=== PATIENT | female | born 1985 | race Caucasian/White ===

== ENCOUNTER 2022-12-18 09:52 | Emergency (ER) | payer OTHER, SELFPAY ==
--- NOTE | ~2022-12-18 | CT_ITS ---
EXAMINATION: CT abdomen pelvis w con DATE: 12/18/2022 13:21 INDICATION: Epigastric abdominal pain. Nausea and dry heaving. Diarrhea. TECHNIQUE: Computed tomography (CT) of the abdomen and pelvis was performed with 100 CC Omnipaque 350 intravenous contrast. Automated exposure control and iterative reconstruction technique were employe d. Exam dose: 1353.04 mGy-cm total exam DLP. COMPARISON: 08/04/2015 CT abdomen pelvis FINDINGS: The lung bases are clear. Normal heart size. No pericardial or pleural effusion. There are radiopaque sutures at the proximal stomach. There is a small sliding hiatal hernia. There i s soft tissue thickening of the sulci was, possibly due to reflux esophagitis. There is cholelithiasis, with evidence of multiple stones. No gallbladder wall thickening or perichol ecystic fluid or fat stranding. No bile duct or pancreatic duct dilatation. No hepatic, pancreatic, splenic space-occupying mass lesion. No pancreatic calcification. Normal morphology of the adrenal glands. No renal mass lesion or urinary tract calculus or hydroureteronephrosis. The urinary bladder is unrem arkable. There is an IUD within the uterus. No adnexal mass lesion. Normal caliber of the abdominal aorta. No intraperitoneal or retroperitoneal or pelvic mass lesion or adenopathy or ascites. Normal appendix. No bowel obstruction, bowel wall thickening, pneumatosis or intraperitoneal free air is noted. Very small fat-containing umbilical hernia. There is an osteosclerotic lesion of the left pubic bone and smaller osteolytic or sclerotic lesion o f the left iliac wing; these are most likely bone islands. Osteosclerotic metastatic disease would be less likely. IMPRESSION: Small sliding hiatal hernia with distal esophageal circumferential soft tissue wall thic [place], possibly due to reflux esophagitis Postoperative change of the stomach Cholelithiasis IUD within uterus Normal appendix Reviewed, dictated and finalized at [facility]. Reviewed, dictated and finalized at [facility]. IMPRESSION: Small sliding hiatal hernia with distal esophageal circumferential soft tissue wall thickening, possibly due to reflux esophagitis Postoperative change of the stomach Cholelithiasis IUD within uterus Normal appendix
[2022-12-18 09:57] VITALS: BP 134/84; PULSE 80; RESP 18; TEMP 36.6; O2SAT 100
[2022-12-18 10:41] LABS: Basophils Percent Auto 0.4 % (0.2-1.2); Eosinophils Percent Auto 0.1 % (0-4.4); Hematocrit 39.8 % (37.0-47.0); Hemoglobin 12.5 g/dL (12.0-15.0); Immature Granulocyte Absolute 0.04 K/mm3 (0.00-0.031); Immature Granulocyte Percent A 0.4 % (0-0.5); Lymphocytes Absolute Auto 1.01 K/mm3 (0.9-3.2); Mean Corpuscular HGB Conc 31.4 g/dl (32-36); Mean Corpuscular Hemoglobin 26.9 pg (26-34); Mean Corpuscular Volume 85.6 fl (80-100); Mean Platelet Volume 11.2 fl (7.4-10.4); Monocytes Absolute Auto 0.3 K/mm3 (0.1-0.6); Monocytes Percent Auto 2.8 % (2.6-8.5); Neutrophils Absolute Auto 9.8 K/mm3 (1.3-6.7); Neutrophils Percent Auto 87.3 % (45.5-73.1); Platelet Count Result 313 k/mm3 (150-375); Red Blood Count 4.65 M/mm3 (4.2-5.4); White Blood Count 11.2 K/mm3 (4.5-10.0)
[2022-12-18 10:47] LABS: Appearance Urine Clear (Clear); Bacteria Urine None Seen /hpf; Bilirubin Urine Negative (Negative); Blood Urine Trace (Negative); Color Urine Yellow (Yellow); Glucose Urine UA 3+ mg/dL (Negative); Ketones Urine 1+ mg/dL (Negative); Leukocyte Esterase Ur Negative LEU/UL (Negative); Nitrate Urine Negative (Negative); Non Pathogenic Casts 0-2; Protein Urine 2+ mg/dL (Negative); RBC Urine 0-2 /hpf (0-2); Specific Grav Ur 1.031 (1.001-1.035); Squamous Epithelial Cell Urine Few /hpf (Few); Urobilinogen Urine 0.2 mg/dL (<2.0); WBC Urine 0-5 /hpf
[2022-12-18 10:48] LABS: Add Urine Microscopic? YES
[2022-12-18 10:49] LABS: Alanine Aminotransferase 19 U/L (6-35); Albumin Level 4.4 g/dL (3.5-5.1); Alkaline Phosphatase 89 U/L (38-126); Anion Gap 10 mmol/L (8-16); Aspartate Amino Transferase 20 U/L (14-36); Bilirubin,Total 0.4 mg/dL (0.2-1.3); Blood Urea Nitrogen 10 mg/dL (7-17); Calcium 9.2 mg/dL (8.4-10.2); Carbon Dioxide 23 mmol/L (22-30); Chloride 106 mmol/L (98-107); Estimated CRCL calculation 136 ml/min; Estimated Glomerular Filt Rate > 60; Glucose 122 mg/dL (65-110); Lipase 63 U/L (23-300); Potassium 3.9 mmol/L (3.4-5.0); Sodium 139 mmol/L (137-145)
[2022-12-18 11:22] VITALS: BP 147/88; PULSE 72
[2022-12-18 11:24] VITALS: BP 137/90; BP 137/98; PULSE 68; PULSE 75
--- NOTE | 2022-12-18 13:01 | ED.NAVMDI ---
HPI - Nausea/Vomiting/Diarrhea General Chief complaint: Nausea/Vomiting/Diarrhea Stated complaint: nausea/dry heaves Time Seen by Provider: 12/18/22 11:15 Source: patient Mode of arrival: ambulatory Limitations: no limitations History of Present Illness HPI Narrative: Patient is a 37-year-old female, with past medical history of gastric bypass surgery, who presents to the ED with report of nausea and dry heaving. Patient reports having persistent nausea since around midnight last night. She notes she had spicy [place] food for dinner last night. She states she is unable to throw anything up besides phlegm. She has had decreased appetite, decreased p.o. intake. She also reports having pain in her epigastric region, soft stools. Denies rectal bleeding, melena. Denies fevers. Denies urinary symptoms. Patient has history of gastric bypass surgery and reports history of dumping syndrome. Related Data Home Medications Medication Instructions Recorded Confirmed bupropion HCl 150 mg 24 hr tablet, 150 mg PO QAM 12/25/19 09/02/21 extended release (Wellbutrin XL) buspirone 5 mg tablet 10 mg PO TID 04/26/20 09/02/21 atomoxetine 60 mg capsule 60 mg PO DAILY 09/02/21 09/02/21 (Strattera) Allergies Allergy/AdvReac Type Severity Reaction Status Date / Time hydrochlorothiazide Allergy Unknown Unknown Verified 05/02/21 08:50 shellfish derived Allergy Hives Verified 05/02/21 09:26 Review of Systems Review of Systems: CONSTITUTIONAL: Denies fever, chills, or sweats. CARDIOVASCULAR: Denies chest pain. RESPIRATORY: Denies dyspnea. GASTROINTESTINAL: See HPI. GENITOURINARY: Denies dysuria or hematuria. SKIN: Denies rash or itching. MUSCULOSKELETAL: Denies back pain, joint pain, or myalgia. All systems reviewed & are unremarkable except as noted in HPI and below PMFSH Surgical History Surgical History History of gastric bypass Family History Family History Father Hypertension Family history of cardiovascular disease Family history of malignant neoplasm Mother Hypertension Grandparent Family history of malignant neoplasm Family history of pancreatic cancer Family history of lung cancer Family history of malignant neoplasm of breast Social History Social History Second hand tobacco smoke exposure: No Alcohol intake: current Substance use type: does not use Exam Narrative: GENERAL: Well appearing, obese with BMI of 37.7, non-toxic, in no acute distress. HEAD: Normocephalic, atraumatic. NECK: Supple. No adenopathy, no masses. RESPIRATORY: Airway patent, respirations nonlabored. Clear to auscultation bilaterally, no rales, rhonchi, wheezing. CARDIOVASCULAR: Regular rate and rhythm without murmurs, rubs, or gallops. Radial pulses 2+ and equal bilaterally. ABDOMINAL: Soft, tenderness in epigastric region, nondistended, no hepatosplenomegaly. Normoactive BS. MUSCULOSKELETAL: Moves all extremities. Strength/ROM intact without gross deformities. SKIN: Warm, dry, normal color. No rashes. NEURO: A&O X3. Speech clear. Cranial nerves II-XII grossly intact. Steady gait. No ataxic movements. PSYCHIATRIC: Appropriate mood and affect. Normal interaction. Course Vital Signs Vital signs: Vital Signs Temperature 97.8 F 12/18/22 09:57 Pulse Rate 80 12/18/22 09:57 Respiratory Rate 18 12/18/22 09:57 Blood Pressure 134/84 12/18/22 09:57 Pulse Oximetry 100 12/18/22 09:57 Oxygen Delivery Room Air 12/18/22 09:57 Temperature 97.8 F 12/18/22 09:57 Pulse Rate 68 12/18/22 11:24 Respiratory Rate 18 12/18/22 09:57 Blood Pressure 137/98 H 12/18/22 11:24 Pulse Oximetry 100 12/18/22 09:57 Oxygen Delivery Room Air 12/18/22 09:57 MDM - Nausea/Vomiting/Diarrhea MDM Narrative Medical decision making
[2022-12-18] MEDS: ONDANSETRON INJ 4 MG/2 ML VIAL IV PUSH (13:04)
[2022-12-18] MEDS: PANTOPRAZOLE SODIUM IV 40 MG VIAL IV PUSH (13:04)
[2022-12-18] MEDS: MORPHINE SULFATE (*CRX) 4 MG/ML INJ IV PUSH (13:05)
[2022-12-18] MEDS: SODIUM CHLORIDE 0.9% IV 1,000 ML 999 ML IV CONT ×2 (13:05→13:40)
[2022-12-18 15:30] VITALS: BP 117/71; PULSE 74; RESP 18; O2SAT 100
== END 2022-12-18 15:20 | disposition home or self-care (01) ==
PROVIDERS: General Practice; Emergency Provider Physician Assistant
DX: K20.90 Esophagitis, unspecified without bleeding (principal); R11.0 Nausea; K80.20 Calculus of gallbladder without cholecystitis without obstruction; Z98.84 Bariatric surgery status
CPT/HCPCS: 36415; 74177; 80053; 81001; 81025; 83690; 85025; 96361; 96374; 96375; 99284; C9113; J2270; J2405; J7030; Q9967

== ENCOUNTER 2023-04-12 06:58 | Emergency (ER) | payer OTHER, SELFPAY ==
[2023-04-12 07:01] VITALS: BP 151/92; PULSE 92; RESP 18; TEMP 36.9; O2SAT 99
[2023-04-12 07:38] LABS: Basophils Percent Auto 0.3 % (0.2-1.2); Eosinophils Percent Auto 0.2 % (0-4.4); Hematocrit 44.8 % (37.0-47.0); Hemoglobin 13.8 g/dL (12.0-15.0); Immature Granulocyte Absolute 0.06 K/mm3 (0.00-0.031); Immature Granulocyte Percent A 0.5 % (0-0.5); Lymphocytes Absolute Auto 0.82 K/mm3 (0.9-3.2); Lymphocytes Percent Auto 6.2 % (18.3-44.2); Mean Corpuscular HGB Conc 30.8 g/dl (32-36); Mean Corpuscular Hemoglobin 26.7 pg (26-34); Mean Corpuscular Volume 86.8 fl (80-100); Mean Platelet Volume 11.2 fl (7.4-10.4); Monocytes Absolute Auto 0.6 K/mm3 (0.1-0.6); Monocytes Percent Auto 4.8 % (2.6-8.5); Neutrophils Absolute Auto 11.6 K/mm3 (1.3-6.7); Platelet Count Result 321 k/mm3 (150-375); Red Blood Count 5.16 M/mm3 (4.2-5.4); Red Cell Distribution Width 16.9 % (11.5-14.5); White Blood Count 13.2 K/mm3 (4.5-10.0)
[2023-04-12 07:47] LABS: Alanine Aminotransferase 20 U/L (6-35); Albumin Level 5.1 g/dL (3.5-5.1); Alkaline Phosphatase 84 U/L (38-126); Anion Gap 16 mmol/L (8-16); Aspartate Amino Transferase 20 U/L (14-36); Bilirubin,Total 0.8 mg/dL (0.2-1.3); Blood Urea Nitrogen 17 mg/dL (7-17); Calcium 10.1 mg/dL (8.4-10.2); Carbon Dioxide 19 mmol/L (22-30); Chloride 101 mmol/L (98-107); Estimated CRCL calculation 98 ml/min; Estimated Glomerular Filt Rate > 60; Glucose 157 mg/dL (65-110); Lipase 58 U/L (23-300); Potassium 3.9 mmol/L (3.4-5.0); Sodium 136 mmol/L (137-145)
[2023-04-12] MEDS: DICYCLOMINE HCL INJ 20 MG/2 ML VIAL IM (07:52)
[2023-04-12] MEDS: SODIUM CHLORIDE 0.9% IV 1,000 ML 999 ML IV CONT (07:52)
[2023-04-12] MEDS: ONDANSETRON INJ 4 MG/2 ML VIAL IV PUSH (07:52)
--- NOTE | 2023-04-12 07:56 | ED.NAVMDI ---
HPI - Nausea/Vomiting/Diarrhea General Chief complaint: Nausea/Vomiting/Diarrhea Stated complaint: vomiting Time Seen by Provider: 04/12/23 07:18 History of Present Illness HPI Narrative: Patient is a 37-year-old female who presents ER with abdominal cramping as well as nausea/vomiting. Symptoms began early this morning. Patient increased her Mounjaro dosage 2 days ago. This is happened previously to her. No fevers chills or sweats. No known sick contacts. No urinary frequency urgency or dysuria. No alleviating factors. Related Data Home Medications Medication Instructions Recorded Confirmed bupropion HCl 150 mg 24 hr tablet, 150 mg PO QAM 12/25/19 09/02/21 extended release (Wellbutrin XL) buspirone 5 mg tablet 10 mg PO TID 04/26/20 09/02/21 atomoxetine 60 mg capsule 60 mg PO DAILY 09/02/21 09/02/21 (Strattera) Allergies Allergy/AdvReac Type Severity Reaction Status Date / Time hydrochlorothiazide Allergy Unknown Unknown Verified 04/12/23 07:23 shellfish derived Allergy Hives Verified 04/12/23 07:23 Review of Systems Review of Systems: All systems reviewed & are unremarkable except as noted in HPI and below Constitutional: Constitutional: Reports no additional constitutional complaints ENT: Reports system reviewed and no additional complaints, except as documented Cardiovascular: Cardiovascular: Reports no additional cardiovascular complaints Respiratory: Respiratory: Reports no additional respiratory complaints Gastrointestinal: Gastrointestinal: Reports abdominal pain, Denies constipation, Denies diarrhea, Reports nausea and Reports vomiting Genitourinary: Genitourinary: Reports no additional female genitourinary complaints [facility] Past Medical History Medical History (Updated 04/12/23 @ 09:49 by Kike Christianson MD) Anxiety Essential (primary) hypertension Hypothyroidism, unspecified Major depressive disorder, recurrent, moderate Type 2 diabetes mellitus with hyperglycemia Surgical History Surgical History History of gastric bypass Family History Family History Father Hypertension Family history of cardiovascular disease Family history of malignant neoplasm Mother Hypertension Grandparent Family history of malignant neoplasm Family history of pancreatic cancer Family history of lung cancer Family history of malignant neoplasm of breast Social History Social History Second hand tobacco smoke exposure: No Alcohol intake: current Substance use type: does not use Exam Narrative: GENERAL: Well-appearing, well-nourished, and in no acute distress. HEAD: Normocephalic, atraumatic. ENT: Mucous membranes moist. NECK: Supple. CHEST: Clear to auscultation. No respiratory distress. HEART: Regular rate and rhythm. Normal peripheral pulses. ABDOMEN: Soft, nontender, nondistended. EXTREMITIES: Normal range of motion. No edema. SKIN: Warm, dry, no rash. NEURO: Alert and oriented x3. PSYCH: Normal mood and affect. Course Course Emergency Course: Labs unremarkable. No focal tenderness on exam. May be GI illness versus medication side effect. Recommend supportive care at home. No urinary symptoms and contaminated sample. Will send for culture. Vital Signs Vital signs: Vital Signs Temperature 98.4 F 04/12/23 07:01 Pulse Rate 92 04/12/23 07:01 Respiratory Rate 18 04/12/23 07:01 Blood Pressure 151/92 H 04/12/23 07:01 Pulse Oximetry 99 04/12/23 07:01 Oxygen Delivery Room Air 04/12/23 07:01 Temperature 98.4 F 04/12/23 07:01 Pulse Rate 86 04/12/23 08:53 Respiratory Rate 17 04/12/23 08:53 Blood Pressure 148/88 H 04/12/23 08:53 Pulse Oximetry 100 04/12/23 08:53 Oxygen Delivery Room Air 04/12/23 07:01 MDM - Nausea/Vomiting/Diarrhea Lab Data
[2023-04-12 08:01] LABS: Appearance Urine Cloudy (Clear); Bacteria Urine 3+ /hpf; Bilirubin Urine Negative (Negative); Blood Urine 3+ (Negative); Color Urine Yellow (Yellow); Glucose Urine UA 3+ mg/dL (Negative); Ketones Urine 3+ mg/dL (Negative); Leukocyte Esterase Ur Negative LEU/UL (Negative); Need Manual Microscopic Reviewed; Nitrate Urine Negative (Negative); Non Pathogenic Casts 0-2; Protein Urine 2+ mg/dL (Negative); Squamous Epithelial Cell Urine Moderate /hpf (Few); Urobilinogen Urine 0.2 mg/dL (<2.0); pH Urine 5.5 (5.0-9.0)
[2023-04-12 08:18] LABS: Specific Grav Ur 1.038 (1.001-1.035)
[2023-04-12 08:19] LABS: Add Urine Microscopic? YES
[2023-04-12 08:53] VITALS: BP 148/88; PULSE 86; RESP 17; O2SAT 100
[2023-04-12] MEDS: BELLADONNA ALK/PHENOB ELIX 10 ML, MAG HYDROX/ALUMINUM HYD/SIMETH 30 ML, LIDOCAINE HCL 2... PO (09:14)
== END 2023-04-12 10:15 | disposition home or self-care (01) ==
PROVIDERS: Emergency Provider Emergency Medicine
DX: K52.9 Noninfective gastroenteritis and colitis, unspecified (principal); I10 Essential (primary) hypertension; E03.9 Hypothyroidism, unspecified; E11.9 Type 2 diabetes mellitus without complications; F41.9 Anxiety disorder, unspecified; F33.9 Major depressive disorder, recurrent, unspecified; Z98.84 Bariatric surgery status; Z79.84 Long term (current) use of oral hypoglycemic drugs
CPT/HCPCS: 36415; 80053; 81001; 81025; 83690; 85025; 87086; 87088; 87147; 96361; 96372; 96374; 99284; A9270; J0500; J2405; J7030

== ENCOUNTER 2023-07-21 15:11 | Emergency (ER) | payer OTHER, SELFPAY ==
--- NOTE | 2023-07-21 15:16 | PC.NURSE ---
pt up to desk stating she is going to go to urgent care due to there being sick pts here.
== END 2023-07-22 04:36 | disposition left against medical advice (07) ==
DX: Z53.21 Procedure and treatment not carried out due to patient leaving prior to being seen by health care provider (principal)
CPT/HCPCS: 99199